=== PATIENT | female | born 1980 | race Caucasian/White ===

== ENCOUNTER 2018-11-16 13:34 | Emergency (ER) | payer MEDICAID ==
[~2018-11-16] VITALS: Ht 160 cm; Wt 74.8 kg
[2018-11-16 13:44] VITALS: BP 131/76
== END 2018-11-16 14:45 | disposition home or self-care (01) ==
LOC: ER 13:34
DX: S09.90XA Unspecified injury of head, initial encounter (principal); F17.200 Nicotine dependence, unspecified, uncomplicated; W22.03XA Walked into furniture, initial encounter; Y93.89 Activity, other specified; Y92.89 Other specified places as the place of occurrence of the external cause; Y99.8 Other external cause status
CPT/HCPCS: 99284

== ENCOUNTER 2020-09-03 11:31 | Inpatient (IN) | payer MEDICAID ==
[2020-09-03] VITALS (11 sets, daily range): BP systolic 109–133; BP diastolic 64–80
[~2020-09-03] VITALS: Ht 160 cm; Wt 68.2 kg
[2020-09-03 11:53] LABS: CLARITY,URINE SLIGHTLY CLOUDY (Clear); COLOR,URINE YELLOW (Yellow); GLUCOSE, URINE NEGATIVE (Neg); KETONES,URINE NEGATIVE (Neg); LEUKOCYTE ESTERASE ,URINE TRACE (Neg); NITRITES, URINE POSITIVE (Neg); OCCULT BLOOD,URINE LARGE (Neg); PROTEIN,URINE NEGATIVE (Neg); URINE HCG NEGATIVE (NEG)
[2020-09-03 11:56] LABS: UA COLLECTION TYPE CLN CATCH MIDSTREAM
[2020-09-03 11:59] LABS: RBC,URINE 50-100 /HPF (0-2); SQUAMOUS EPITHELIAL CELL,UR MODERATE /LPF (FEW); TRANSITIONAL EPI CELLS,URINE MANY /HPF
[2020-09-03 12:00] LABS: BACTERIA,URINE 3+ /HPF (Neg); WBC,URINE 20-30 /HPF (0-4)
[2020-09-03 12:12] LABS: BASOPHILS # (AUTO) 0.1 X10'3 (0-0.2); BASOPHILS % (AUTO) 0.6 % (0-1); EOSINOPHILS # (AUTO) 0.1 X10'3 (0-0.9); EOSINOPHILS % (AUTO) 1.1 % (0-6); HEMATOCRIT 36.6 % (35.0-45.0); HEMOGLOBIN 12.5 g/dl (12.0-16.0); LYMPHOCYTES # (AUTO) 0.7 X10'3 (1.1-4.8); LYMPHOCYTES % (AUTO) 7.9 % (21-51); MEAN CORPUSCULAR HEMOGLOBIN 31.9 PG (27.0-31.0); MEAN CORPUSCULAR VOLUME 93.7 FL (78-98); MEAN PLATELET VOLUME 7.8 FL (7.4-10.4); MONOCYTES # (AUTO) 0.4 X10'3 (0-0.9); MONOCYTES % (AUTO) 4.1 % (2-12); NEUTROPHILS # (AUTO) 7.8 X10'3 (1.8-7.7); NEUTROPHILS % (AUTO) 86.3 % (42-75); PLATELET COUNT 178 X10'3 (140-440); RED BLOOD COUNT 3.91 X10'6 (4.20-5.60); RED CELL DISTRIBUTION WIDTH 12.7 % (11.5-14.5)
[2020-09-03 12:27] LABS: ALANINE AMINOTRANSFERASE 19 U/L (12-78); ALBUMIN 3.8 G/DL (3.4-5.0); ALKALINE PHOSPHATASE 55 IU/L (46-116); ANION GAP 9 (8-16); ASPARTATE AMINO TRANSFERASE 21 U/L (10-37); BILIRUBIN,TOTAL 0.6 MG/DL (0.1-1.0); BLOOD UREA NITROGEN 14 MG/DL (7-18); BUN/CREATININE RATIO 15.2 (6.6-38.0); CALCIUM 8.8 MG/DL (8.5-10.1); CHLORIDE 104 MMOL/L (99-107); CREATININE 0.92 MG/DL (0.40-0.90); GLUCOSE 103 MG/DL (70-104); LIPASE 78 U/L (73-393); POTASSIUM 4.1 MMOL/L (3.5-5.1); SODIUM 138 MMOL/L (135-145); TOTAL CARBON DIOXIDE 25.2 MMOL/L (24-32); TOTAL PROTEIN 7.6 G/DL (6.4-8.2); eGFR 68 ML/MIN
[2020-09-03] MEDS ORDERED: normal saline 1000ml 1,000 ML IV ONE (12:40)
[2020-09-03] MEDS ORDERED: ondansetron/PF 4mg/2ml inj IV ONE (12:40)
[2020-09-03] MEDS ORDERED: morphine 4 MG/ML inj SYRINge IV ONE (12:40)
[2020-09-03] MEDS ORDERED: ketorolac tromethamine 15mg/ml inj. IV ONE (12:50)
[2020-09-03] MEDS ORDERED: piperacillin/tazo 3.375gm/50ml 50 ML IV ONE (13:15)
[2020-09-03] MEDS ORDERED: HYDROcodone/acetaminophen 5mg/325mg tablet PO PRN (13:50)
[2020-09-03] MEDS ORDERED: acetaminophen 325mg tablet PO PRN ×2 (13:50)
[2020-09-03] MEDS ORDERED: magnesium 2GM in 50ml NS 50 ML IV PRN (13:50)
[2020-09-03] MEDS ORDERED: magnesium hydroxide 30ml (MOM) UD suspension PO PRN (13:50)
[2020-09-03] MEDS ORDERED: potassium Cl 20 mEq SR tablet PO PRN ×2 (13:50)
[2020-09-03] MEDS ORDERED: magnesium 4gm in 100ml NS 100 ML IV PRN (13:50)
[2020-09-03] MEDS ORDERED: potassium CL 10mEq/100ml bag 100 ML IV PRN ×2 (13:50)
[2020-09-03] MEDS ORDERED: magnesium Cl slow-release 64mg tablet PO PRN (13:50)
[2020-09-03] MEDS ORDERED: morphine 2 MG/ML inj. syringe IV PRN ×2 (13:50→16:10)
[2020-09-03] MEDS ORDERED: ondansetron/PF 4mg/2ml inj IV PRN ×3 (13:50→18:10)
[2020-09-03] MEDS ORDERED: mag hydrox/Alum hydrox/simeth 30ml oral suspension PO PRN (13:50)
--- NOTE | 2020-09-03 13:51 | NUR ---
LAST FOOD AND DRINK AT 1000: CHEESEBURGER AND ICED TEA
--- NOTE | 2020-09-03 13:51 | NUR ---
RIGHT AC 18 G PIV STARTED BY ZBIGNIEW SANDOVAL WITH ULTRA SOUND 2 ATTEMPTS
[2020-09-03 14:15] LABS: PARTIAL THROMBOPLASTIN TIME 28 SECONDS (22-32)
--- NOTE | 2020-09-03 14:50 | NUR ---
I have received report from JAIME Burnette and had the opportunity to ask questions and assume patient care.
--- NOTE | 2020-09-03 14:50 | NUR ---
PHONE REPORT TO JAIME QUIÑONES
--- NOTE | 2020-09-03 15:21 | NUR ---
Pt arrived to surgical floor with home meds in plastic bag. Home meds recorded and sent to pharmacy.
[2020-09-03] MEDS: normal saline 1000ml 1,000 ML IV SCH ×2 (15:30→21:33)
[2020-09-03] MEDS ORDERED: LORA10TA7 PO (15:38)
[2020-09-03] MEDS ORDERED: GLYC1TAB23 PO (15:38)
[2020-09-03] MEDS ORDERED: BUPR1FIL3 SL (15:38)
[2020-09-03] MEDS ORDERED: TRAZ150T78 PO (15:38)
[2020-09-03] MEDS ORDERED: SERT100T10 PO (15:38)
[2020-09-03] MEDS ORDERED: NORG1TAB78 PO (15:38)
[2020-09-03] MEDS ORDERED: ISON300T20 PO (15:38)
[2020-09-03] MEDS ORDERED: GABA600T13 PO (15:38)
[2020-09-03] MEDS ORDERED: ringers solution, lacted 1,000 ML IV SCH (16:10)
[2020-09-03] MEDS ORDERED: ringers solution, lacted 1,000 ML IV ONE (16:10)
[2020-09-03] MEDS ORDERED: fentaNYL/PF 50MCG/1 ML 2ML syringe IV PRN ×4 (16:10)
[2020-09-03] MEDS ORDERED: morphine 4 MG/ML inj SYRINge IV PRN (16:10)
[2020-09-03] MEDS ORDERED: hydrALAZINE 20mg/ml inj. IV PRN (16:10)
[2020-09-03] MEDS ORDERED: labetalol 20mg/4ml (5mg/ml) syringe IV PRN (16:10)
[2020-09-03] MEDS ORDERED: BUPIVAcaine/PF 2.5 mg/ml (0.25%) 30ml vial ONE (16:29)
[2020-09-03] MEDS ORDERED: fentaNYL/PF 50MCG/1 ML 2ML syringe ONE (16:41)
[2020-09-03] MEDS ORDERED: midazolam 2 mg/2 ml injection ONE (16:41)
[2020-09-03] MEDS ORDERED: glycopyrrolate 0.2mg/ml inj ONE (16:43)
[2020-09-03] MEDS ORDERED: rocuronium 10mg/ml inj IV ONE (16:43)
[2020-09-03] MEDS ORDERED: neostigmine methylsulfate 1 MG/ML 10ml vial ONE (16:43)
[2020-09-03] MEDS ORDERED: ondansetron/PF 4mg/2ml inj ONE (16:43)
[2020-09-03] MEDS ORDERED: LIDOcaine 2% (20mg/ml) 5ml vial ONE (16:43)
[2020-09-03] MEDS ORDERED: propofol inj 20 ML IV ONE (16:43)
[2020-09-03] MEDS ORDERED: dexamethasone sod phosphate 4mg/ml inj. ONE (16:43)
--- NOTE | 2020-09-03 16:46 | NUR ---
Pt transported to OR, wallet sent to safe, and rest of belongings left in room 347A.
[2020-09-03] MEDS ORDERED: sevoflurane 250ml liquid IH ONE (16:52)
[2020-09-03] MEDS ORDERED: ceFOXitin 1000 MG inj ONE ×2 (17:19)
--- NOTE | 2020-09-03 18:05 | NUR ---
Received from OR via BED, accompanied by Anesthesiologist DR CA and report given by Anesthesiologist. VSS, ABD SOFT/NONDISTENDED. DENIES PAIN OR NAUSEA WHEN ASKED. IV PATENT RIGHT AC #18 LR 100MLS/HR. SCD'S BILAT Addendum: 09/03/20 at 1829 by Lyndsay Lamb RN Amended: Links added.
[2020-09-03] MEDS ORDERED: HYDROcodone/acetaminophen 10/325mg tab PO PRN (18:10)
--- NOTE | 2020-09-03 18:15 | NUR ---
Problems reprioritized. Patient report given, questions answered & plan of care reviewed with JAIME Grider.
--- NOTE | 2020-09-03 18:50 | NUR ---
Report received from Recovery nurse. Pt arrived in hospital bed. c/o 01/21 pain. Pt understands goals of walking tonight and voiding. Post Op VS started, pt on 2 L. IV infusing in right AC that was placed via US in ER per day nurse report. Will continue to monitor and treat as ordered. Addendum: 09/03/20 at 5960 by Marni Monroe RN Amended: Links added.
--- NOTE | 2020-09-03 18:55 | NUR ---
VSS. A&OX4, SLEEPING INTERMITTENTLY. DENIES PAIN/NAUSEA WHEN ASKED. IV PATENT. ABD SOFT/NONDISTENDED WITH BANDAIDS X3 CDI. REPORT GIVEN TO DOUG SANDOVAL WITH ALL QUESTIONS ANSWERED. TRANSPORT TO [facility] VIA BED BY RN WITH DOUG SANDOVAL IN TO RECEIVE PT Addendum: 09/03/20 at 1905 by Lyndsay Lamb RN Amended: Links added.
[2020-09-03] MEDS: gabapentin 300mg capsule PO SCH (20:00)
[2020-09-03] MEDS: buprenorphine/naloxone 8MG-2MG SUBlingual film SL SCH (20:00)
[2020-09-03] MEDS: glycopyrrolate 1mg tablet PO SCH (20:00)
[2020-09-03] MEDS: K and/or MAG REPLACEMENT MC SCH (20:00)
[2020-09-03] MEDS: morphine 2 MG/ML inj. syringe IV PRN (20:11)
[2020-09-03] MEDS: heparin, porcine 5000 units/ml vial SQ SCH (20:17)
[2020-09-03] MEDS ORDERED: temazepam 15mg capsule PO PRN (21:00)
[2020-09-03] MEDS ORDERED: traZODone 150mg tablet PO SCH (21:00)
[2020-09-03] MEDS: HYDROcodone/acetaminophen 10/325mg tab PO PRN (21:59)
--- NOTE | 2020-09-03 22:00 | NUR ---
Pt post op VS did not save on vital sign machine to record post ops. Vitals have been WNL thus far. Will continue to monitor. Addendum: 09/03/20 at 2348 by Marni Monroe RN Amended: Links added.
[2020-09-03] MEDS: piperacillin/tazo 3.375gm/50ml 50 ML IV SCH (23:32)
[2020-09-04] VITALS: BP 109/65
[2020-09-04] MEDS ORDERED: piperacillin/tazo 3.375gm/50ml 50 ML IV SCH
[2020-09-04] MEDS: buprenorphine/naloxone 8MG-2MG SUBlingual film SL SCH ×2 (02:00→07:46)
[2020-09-04] MEDS: gabapentin 300mg capsule PO SCH ×2 (02:00→07:43)
[2020-09-04] MEDS: morphine 2 MG/ML inj. syringe IV PRN (03:43)
[2020-09-04 04:00] VITALS: BP 125/68
--- NOTE | 2020-09-04 04:41 | NUR ---
Student documentation: I have reviewed and agree with all interventions, assessments performed and documented by Cecelia. Student Medication Administration: For this medication-pass time frame, all medication were reviewed, dispensed, administered and documented per hospital policy by Johnnie. Addendum: 09/04/20 at 0441 by Marni Monroe RN Amended: Links added.
[2020-09-04 05:51] LABS: BASOPHILS % (AUTO) 0 % (0-1); EOSINOPHILS % (AUTO) 0 % (0-6); HEMATOCRIT 34.7 % (35.0-45.0); HEMOGLOBIN 11.8 g/dl (12.0-16.0); LYMPHOCYTES # (AUTO) 0.4 X10'3 (1.1-4.8); LYMPHOCYTES % (AUTO) 5.2 % (21-51); MEAN CORPUSCULAR HEMOGLOBIN 32.4 PG (27.0-31.0); MEAN CORPUSCULAR VOLUME 95.3 FL (78-98); MEAN PLATELET VOLUME 8.1 FL (7.4-10.4); MONOCYTES # (AUTO) 0.1 X10'3 (0-0.9); MONOCYTES % (AUTO) 1.3 % (2-12); NEUTROPHILS # (AUTO) 7.3 X10'3 (1.8-7.7); NEUTROPHILS % (AUTO) 93.5 % (42-75); PLATELET COUNT 156 X10'3 (140-440); RED BLOOD COUNT 3.64 X10'6 (4.20-5.60); WHITE BLOOD COUNT 7.8 X10'3 (4.5-11.0)
--- NOTE | 2020-09-04 06:06 | NUR ---
Patient in room [facility] 347. I have received report from JAIME Grider and had the opportunity to ask questions and assume patient care.
--- NOTE | 2020-09-04 06:06 | NUR ---
Problems reprioritized. Patient report given, questions answered & plan of care reviewed with Kaye SANDOVAL. Addendum: 09/04/20 at 0606 by Marni Monroe RN Amended: Links added.
[2020-09-04 06:27] LABS: ALANINE AMINOTRANSFERASE 16 U/L (12-78); ALBUMIN 3.2 G/DL (3.4-5.0); ALBUMIN/GLOBULIN RATIO 0.9 (1.1-1.5); ALKALINE PHOSPHATASE 54 IU/L (46-116); ANION GAP 9 (8-16); ASPARTATE AMINO TRANSFERASE 17 U/L (10-37); BILIRUBIN,TOTAL 0.5 MG/DL (0.1-1.0); BLOOD UREA NITROGEN 8 MG/DL (7-18); BUN/CREATININE RATIO 11.3 (6.6-38.0); CALCIUM 8.3 MG/DL (8.5-10.1); CHLORIDE 107 MMOL/L (99-107); CREATININE 0.71 MG/DL (0.40-0.90); GLUCOSE 135 MG/DL (70-104); MAGNESIUM 1.9 MG/DL (1.5-2.4); POTASSIUM 4.1 MMOL/L (3.5-5.1); SODIUM 139 MMOL/L (135-145); TOTAL CARBON DIOXIDE 23.2 MMOL/L (24-32); TOTAL PROTEIN 6.8 G/DL (6.4-8.2); eGFR > 90 ML/MIN
[2020-09-04 07:00] VITALS: BP 131/78
[2020-09-04] MEDS: K and/or MAG REPLACEMENT MC SCH (07:03)
[2020-09-04] MEDS: piperacillin/tazo 3.375gm/50ml 50 ML IV SCH (07:42)
[2020-09-04] MEDS: normal saline 1000ml 1,000 ML IV SCH (07:42)
[2020-09-04] MEDS: HYDROcodone/acetaminophen 10/325mg tab PO PRN (07:48)
[2020-09-04] MEDS: glycopyrrolate 1mg tablet PO SCH (07:50)
[2020-09-04] MEDS: heparin, porcine 5000 units/ml vial SQ SCH (07:51)
[2020-09-04] MEDS ORDERED: NORGESTIMATE ETHINYL ESTRADIOL PO SCH (08:00)
[2020-09-04] MEDS ORDERED: sertraline 50mg tablet PO SCH (08:00)
[2020-09-04] MEDS ORDERED: loratadine 10mg tablet PO SCH (08:00)
[2020-09-04] MEDS ORDERED: ibuprofen 200mg tablet PO PRN (10:00)
[2020-09-04 11:00] VITALS: BP 129/76
[2020-09-04] MEDS ORDERED: CIPR-259 PO (12:43)
--- NOTE | 2020-09-04 13:37 | NUR ---
Patient discharged home via self and [facility] with [facility] staff. Patient alert, oriented and in no apparent distress at time of discharge. Patient took all belongings with her including her home medications from the pharmacy and her wallet from the safe via security. Patient discharge instructions discussed with her including new medication and when to take the next dose. Patient stated an understanding of this teaching as well as the information regarding follow up and how to take care of her recovery at home. Patient PIV removed with cannula intact.
[2020-09-04] MEDS ORDERED: lactobacillus rhamnosus 10,000 MMU CELLS/CAPSULE PO SCH (20:00)
== END 2020-09-04 13:25 | disposition home or self-care (01) | DRG 234 ==
LOC: ER 11:31 → ED HOLD 13:49 → SUR 3N 15:10
PROVIDERS: ADMIT Internal Medicine; ATTEND Internal Medicine
PROC: 8E0W4CZ Robotic Assisted Procedure of Trunk Region, Percutaneous Endoscopic Approach (ICD-10-PCS; 2020-09-03)
PROC: 0DTJ4ZZ Resection of Appendix, Percutaneous Endoscopic Approach (ICD-10-PCS; principal; 2020-09-03 16:52)
DX: K35.80 Unspecified acute appendicitis (principal); B19.20 Unspecified viral hepatitis C without hepatic coma; F11.90 Opioid use, unspecified, uncomplicated; F17.200 Nicotine dependence, unspecified, uncomplicated; K59.00 Constipation, unspecified; N39.0 Urinary tract infection, site not specified; Z22.7 Latent tuberculosis; Z79.899 Other long term (current) drug therapy
CPT/HCPCS: 36415; 74176; 80053; 81001; 81025; 82948; 83605; 83690; 83735; 85025; 85610; 85730; 86870; 86885; 86900; 86901; 87040; 87077; 87081; 87088; 87186; 93005; 96365; 96375; 99285; A4215; A4314; A4618; G0378; J0694; J1100; J1644; J1885; J2001; J2250; J2270; J2405; J2543; J2704; J2710; J3010; J3490; J7030

== ENCOUNTER 2020-10-21 12:57 | Outpatient (CLI) | payer MEDICAID ==
[~2020-10-21 12:57] MED LIST: BUPR1FIL3 SL; CIPR-259 PO; GABA600T13 PO; GLYC1TAB23 PO; ISON300T20 PO; LORA10TA7 PO; NORG1TAB78 PO; SERT100T10 PO; TRAZ150T78 PO
== END 2020-10-21 23:59 | disposition home or self-care (01) ==
LOC: VAS 12:57
PROVIDERS: ATTEND Family Medicine
DX: S83.92XA Sprain of unspecified site of left knee, initial encounter (principal); M79.662 Pain in left lower leg; X58.XXXA Exposure to other specified factors, initial encounter; Y93.89 Activity, other specified; Y92.89 Other specified places as the place of occurrence of the external cause; Y99.8 Other external cause status
CPT/HCPCS: 93971

== ENCOUNTER 2021-05-21 15:23 | Emergency (ER) | payer MEDICAID ==
[~2021-05-21] VITALS: Ht 160 cm; Wt 63.6 kg
[~2021-05-21 15:23] MED LIST changes: +SERT-434 PO; -SERT100T10 PO
[2021-05-21 15:44] VITALS: BP 111/54
[2021-05-21] MEDS ORDERED: SULF1TAB49 PO (16:18)
== END 2021-05-21 16:44 | disposition home or self-care (01) ==
LOC: ER 15:24
DX: L02.31 Cutaneous abscess of buttock (principal); Z86.19 Personal history of other infectious and parasitic diseases; Z72.89 Other problems related to lifestyle; Z79.2 Long term (current) use of antibiotics; Z79.899 Other long term (current) drug therapy
CPT/HCPCS: 99282; 99283

== ENCOUNTER 2021-08-11 12:21 | Emergency (ER) | payer MEDICAID ==
[~2021-08-11] VITALS: Ht 160 cm; Wt 63.6 kg
[2021-08-11 12:33] VITALS: BP 118/78
[2021-08-11 13:49] LABS: ALANINE AMINOTRANSFERASE 23 U/L (12-78); ALBUMIN 3.8 G/DL (3.4-5.0); ALBUMIN/GLOBULIN RATIO 0.8 (1.1-1.5); ALKALINE PHOSPHATASE 109 IU/L (46-116); ANION GAP 9 (8-16); ASPARTATE AMINO TRANSFERASE 18 U/L (10-37); BILIRUBIN,TOTAL 0.5 MG/DL (0.1-1.0); BLOOD UREA NITROGEN 10 MG/DL (7-18); BUN/CREATININE RATIO 11.6 (6.6-38.0); CALCIUM 9.5 MG/DL (8.5-10.1); CHLORIDE 103 MMOL/L (99-107); CREATININE 0.86 MG/DL (0.40-0.90); GLUCOSE 113 MG/DL (70-104); POTASSIUM 4.1 MMOL/L (3.5-5.1); SODIUM 139 MMOL/L (135-145); TOTAL CARBON DIOXIDE 27.2 MMOL/L (24-32); TOTAL PROTEIN 8.5 G/DL (6.4-8.2); eGFR 73 ML/MIN
--- NOTE | 2021-08-11 14:39 | NUR ---
Spoke to lab, pt difficult draw. Attempted to draw pt, and blood clotted.
[2021-08-11] MEDS ORDERED: CEPH500C2 PO (15:20)
[2021-08-11] MEDS ORDERED: SULF1TAB49 PO (15:20)
== END 2021-08-11 17:08 | disposition left against medical advice (07) ==
LOC: ER 12:22
DX: L02.416 Cutaneous abscess of left lower limb (principal); M79.662 Pain in left lower leg; F41.9 Anxiety disorder, unspecified; Z86.19 Personal history of other infectious and parasitic diseases; Z72.89 Other problems related to lifestyle; Z79.2 Long term (current) use of antibiotics; Z79.899 Other long term (current) drug therapy
CPT/HCPCS: 36415; 80053; 84145; 85025; 99283